=== PATIENT | female | born 1985 | race African-American/Black ===

== ENCOUNTER 2018-03-31 15:22 | Emergency (ER) | payer OTHER ==
[~2018-03-31] VITALS: Ht 170.2 cm; Wt 72.6 kg
--- NOTE | ~2018-03-31 | EKG ---
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
--- NOTE | ~2018-03-31 | EKG ---
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
[~2018-03-31 15:22] MED LIST: NOHOMEMEDICATIONS
[2018-03-31 15:57] LABS: ABSOLUTE EOSINOPHILS 0.3 thou/uL (0.0-0.7); ABSOLUTE LYMPHOCYTES 0.9 thou/uL (0.8-5.3); ABSOLUTE MONOCYTES 0.3 thou/uL (0.0-1.2); ABSOLUTE NEUTROPHILS 4.2 thou/uL (1.6-8.1); BASOPHILS 0.5 %; EOSINOPHILS 4.3 %; HEMATOCRIT 38.2 % (37.0-47.0); HEMOGLOBIN 12.5 gm/dL (12.0-15.0); LYMPHOCYTES 16.3 %; MCH 27.2 pg (26.0-34.0); MCHC 32.7 g/dL (28.0-37.0); MCV 83.2 fL (80.0-100.0); MONOCYTES 5.8 %; MPV 9.5 fl. (7.2-11.1); NUCLEATED RBCS 0 /100WBC; PLATELET COUNT* 169 thou/uL (150-400); POLYS 73.1 %; RBC 4.59 mil/uL (4.20-5.00); RDW-CV 14.9 % (10.5-14.5); WBC 5.8 thou/uL (4.0-11.0)
[2018-03-31 16:07] LABS: ANION GAP 9 mmol/L (7-16); BUN 7 mg/dL (7-18); CALCIUM 8.2 mg/dL (8.5-10.1); CHLORIDE 104 mmol/L (98-107); CO2 24 mmol/L (21-32); CREATININE 0.9 mg/dL (0.6-1.3); GLUCOSE 99 mg/dL (70-99); POTASSIUM 3.2 mmol/L (3.5-5.1); SODIUM 137 mmol/L (136-145)
[2018-03-31 16:17] LABS: PLATELET ESTIMATE ADEQUATE
[2018-03-31 16:18] LABS: LARGE PLATELETS FEW
[2018-03-31 16:22] LABS: ALBUMIN 3.7 g/dL (3.4-5.0); ALKALINE PHOSPHATASE 46 U/L (46-116); LIPASE 209 U/L (73-393); MAGNESIUM 1.9 mg/dL (1.8-2.4); SGOT 22 U/L (15-37); SGPT 21 U/L (30-65); TOTAL BILIRUBIN 0.3 mg/dL (<0.1-1.0); TOTAL PROTEIN 7.6 g/dL (6.4-8.2); TROPONIN-I LEVEL <0.06 ng/mL (<0.06)
[2018-03-31 19:10] VITALS: BP 103/65
[2018-03-31] MEDS ORDERED: ZOFRAN ODT4 MG PO (20:39)
[2018-03-31] MEDS ORDERED: IBUPROFEN 800800 MG PO (20:39)
[2018-03-31] MEDS ORDERED: CYCLOBENZAPRINE5 MG PO (21:23)
[2018-03-31] MEDS ORDERED: FLEXERIL PO (21:32)
--- NOTE | 2018-04-01 14:13 | EKG ---
[place] [address] ELECTROCARDIOGRAM REPORT Name: TAY SMALL Room: [facility]#: [id number] Admission: 03/31/18 Attend Phys: Discharge: 04/01/18 Date of : 81 Report #: [id number] THIS REPORT FOR: //name// [facility] ED Test Date: 2018-03-31 Test Time: 15:59:30 Pat Name: TAY SMALL Department: Room: Gender: F Access Rn: Slime TAM : 1985 Requested By: David Burrell Order Number: [id number] MD: Basim Balbuena Measurements Intervals [place] Rate: 85 P: 76 RI: 157 QRS: 61 QRSD: 90 T: 27 QT: 355 QTc: 422 Interpretive Statements Sinus rhythm Probable left atrial enlargement RSR' in V1 or V2, right VCD or RVH Nonspecific T abnormalities, anterior leads No previous ECG available for comparison Electronically Signed On 04-01-2018 14:13:31 CDT by Basim Balbuena [email or web address] <ELECTRONICALLY SIGNED> By: Basim Balbuena MD, [facility] 04/01/18 1413 1559 1559 Basim Balbuena MD, [facility] /EPI
== END 2018-04-01 01:45 | disposition home or self-care (01) ==
LOC: M.ERS 15:22
PROVIDERS: Emergency Medicine Emergency Medical Services
DX: R07.89 Other chest pain (principal); N83.8 Other noninflammatory disorders of ovary, fallopian tube and broad ligament